=== PATIENT | male | born 1935 | race Hispanic/Latino ===

== ENCOUNTER 2022-06-14 09:46 | Outpatient (CLI) | payer MEDICARE | END 2022-06-14 09:47 | disposition home or self-care (01) | LOC: CSHWCC 09:46 | PROVIDERS: ATTEND Nurse Practitioner Family | DX: I70.262 Atherosclerosis of native arteries of extremities with gangrene, left leg (principal); L97.522 Non-pressure chronic ulcer of other part of left foot with fat layer exposed | CPT/HCPCS: 97139; G0463; 99212 ==

== ENCOUNTER 2022-07-01 10:26 | Outpatient (CLI) | payer MEDICARE | END 2022-07-01 10:27 | disposition home or self-care (01) | LOC: CSHWCC 10:26 | PROVIDERS: ATTEND Nurse Practitioner Family | DX: I70.262 Atherosclerosis of native arteries of extremities with gangrene, left leg (principal); L97.522 Non-pressure chronic ulcer of other part of left foot with fat layer exposed | CPT/HCPCS: 97605 ==

== ENCOUNTER 2022-07-05 11:25 | Outpatient (CLI) | payer MEDICARE | END 2022-07-05 11:26 | disposition home or self-care (01) | LOC: CSHWCC 11:25 | PROVIDERS: ATTEND Nurse Practitioner Family | DX: I70.262 Atherosclerosis of native arteries of extremities with gangrene, left leg (principal); L97.522 Non-pressure chronic ulcer of other part of left foot with fat layer exposed ==